=== PATIENT | female | born 1950 | race Caucasian/White ===

== ENCOUNTER 2022-01-24 08:40 | Day surgery (SDC) | payer MEDICARE ==
[~2022-01-24] VITALS: Ht 154.9 cm; Wt 95.0 kg
[~2022-01-24 08:40] MED LIST: ASPIRIN 81M81 MG/TA2 PO; B COMPLEX #11 TA1 PO; BENICAR 20MG TA20 MG PO; CEROVITE SENIOR1 TA1 PO; FISH OIL500 MG PO; NORCO 325 MG-51 TAB PO; OCUVITE ADULT 51 SGL PO
[2022-01-24] MEDS ORDERED: OSCAL 500 TAB500 MG PO (08:56)
[2022-01-24] MEDS ORDERED: BENICAR40 MG PO (08:56)
[2022-01-24] MEDS ORDERED: LIPITOR20 MG PO (08:56)
[2022-01-24 09:07] VITALS: BP 168/98; PULSE 68; TEMP 97.1
[2022-01-24 10:20] VITALS: BP 114/75; PULSE 64; TEMP 97.3
[2022-01-24 10:35] VITALS: BP 116/79; PULSE 70
[2022-01-24 10:50] VITALS: BP 121/73; PULSE 72
--- NOTE | 2022-01-24 12:03 | NUR ---
1020: Patient arrived back into [facility] following endo procedure. Report received from SARITA Jacome. Patient alert and awake. Requesting muffins and apple juice. Vital signs stable on room air. Call light left within reach. 1035: Patient tolerating food and drink. Denies pain or nausea at this time. Vital signs stable on room air. 1050: Patient tolerating food and drink. Denies pain or nausea IV removed without complication. Patient got dressed independently. Changed ostomy bag. 1105: MD in to see patient. 1110: Patient tolerated food and drink well. Meets discharge criteria went through discharge instructions with patient. Questions answered. Patient escorted to patient entrance via wheelchair and met friend in the lobby. Patient got into personal vehicle unassisted and left in the care of her friend.
== END 2022-01-24 11:15 | disposition home or self-care (01) ==
LOC: SDCO 08:40
DX: K57.30 Diverticulosis of large intestine without perforation or abscess without bleeding (principal); K92.1 Melena
CPT/HCPCS: J2704; J7030